=== PATIENT | female | born 1970 | race Hispanic/Latino ===

== ENCOUNTER 2018-11-08 15:43 | Emergency (ER) | payer OTHER ==
--- OUTSIDE RECORDS SUMMARY | 2018-11-08 15:46 | XMS REPORT ---
:1970 [facility] Address [address] [place] [address] Care Team Providers Name Role Phone Unavailable Unavailable Unavailable Payers Payer Name Policy Type Policy Number Effective Date Expiration Date Problems This patient has no known problems. Allergies, Adverse Reactions, Alerts This patient has no known allergies or adverse reactions. Medications This patient has no known medications.
[2018-11-08 17:08] LABS: Urine Glucose NEGATIVE (NEG); Urine Specific Gravity >1.030 (1.005-1.030)
[2018-11-08 17:09] LABS: Urine Blood NEGATIVE (NEG); Urine Protein 1+ (NEG); Urine pH 5.5 (5.0-7.0)
--- NOTE | 2018-11-08 17:29 | RAD REPORT ---
EXAM DESCRIPTION: RAD - Chest Single View - 11/08/2018 4:57 pm CLINICAL HISTORY: DYSPNEA Chest pain. COMPARISON: <Comparisons> FINDINGS: Portable technique limits examination quality. The lungs are grossly clear. The heart is normal in size. No displaced fractures. IMPRESSION: No acute intrathoracic process suspected.
[2018-11-08] MEDS ORDERED: NA CHLORIDE 0.9% 1,000 ML ONE (18:17)
[2018-11-08 18:23] LABS: Basophils % 0.7 % (0-1.3); Hematocrit 35.8 % (36.0-45.0); Lymphocytes % 36.1 % (15.3-44.8); MPV 12.5 fL (7.6-11.3); RBC Red Blood Cell Count 3.87 M/uL (3.86-4.86)
[2018-11-08 18:36] LABS: Potassium 3.4 mmol/L (3.5-5.1)
--- NOTE | 2018-11-08 18:58 | ER ---
Nurse's Notes [facility] Name: Sidni Yang Age: 48 yrs Sex: Female : 1970 Arrival Date: 11/08/2018 Time: 15:45 Bed 27 Private MD: Diagnosis: Dizziness and giddiness Presentation: 11/08 15:53 Presenting complaint: Patient states: I have been feeling a little short of breath and la1 dizzy. I thought I was dehydrated, pt denies N/V/D, reports hx of anemia, had blood work about 3 weeks ago. Transition of care: patient was not received from another setting of care. Onset of symptoms was November 08, 2018. Risk Assessment: Do you want to hurt yourself or someone else? Patient reports no desire to harm self or others. Initial Sepsis Screen: Does the patient meet any 2 criteria? No. Patient's initial sepsis screen is negative. Does the patient have a suspected source of infection? No. Patient's initial sepsis screen is negative. Care prior to arrival: None. 15:53 Method Of Arrival: Ambulatory la1 15:53 Acuity: JOSAFAT 3 la1 Triage Assessment: 19:10 Respiratory: ca1 19:10 Respiratory: Onset: The symptoms/episode began/occurred. 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 - Social history:: Smoking status: Patient/guardian denies using tobacco. - Ebola Screening: : No symptoms or risks identified at this time. Screenin:20 Abuse screen: Denies threats or abuse. Denies injuries from another. Nutritional ca1 screening: No deficits noted. Tuberculosis screening: No symptoms or risk factors identified. Fall Risk IV access (20 points). Assessment: 16:20 General: Appears in no apparent distress. comfortable, Behavior is calm, cooperative, ca1 appropriate for age. Pain: Denies pain. Neuro: Level of Consciousness is awake, alert, obeys commands, Oriented to person, place, time, situation, Reports dizziness, since 3-4 days ago. Cardiovascular: Heart tones S1 S2 present Capillary refill < 3 seconds Patient's skin is warm and dry. Pulses are all present. Rhythm is regular. Respiratory: Reports shortness of breath on exertion since 3-4 days ago Airway is patent Respiratory effort is even, unlabored, Respiratory pattern is regular, symmetrical, Breath sounds are clear bilaterally. GI: Abdomen is flat, non-distended, Bowel sounds present X 4 quads. Abd is soft and non tender X 4 quads. Patient currently denies nausea, vomiting. : No deficits noted. No signs and/or symptoms were reported regarding the genitourinary system. EENT: No deficits noted. No signs and/or symptoms were reported regarding the EENT system. Derm: Skin is intact, is healthy with good turgor, Skin is pink, warm \T\ dry. Musculoskeletal: Circulation, motion, and sensation intact. Capillary refill < 3 seconds, Range of motion: intact in all extremities. 17:00 Reassessment: Patient appears in no apparent distress at this time. Patient and/or ca1 family updated on plan of care and expected duration. Pain level reassessed. Patient is alert, oriented x 3, equal unlabored respirations, skin warm/dry/pink. 18:00 Reassessment: Patient appears in no apparent distress at this time. Patient and/or ca1 family updated on plan of care and expected duration. Pain level reassessed. Patient is alert, oriented x 3, equal unlabored respirations, skin warm/dry/pink. 19:09 Reassessment: Patient appears in no apparent distress at this time. Patient is alert, ca1 oriented x 3, equal unlabored respirations, skin warm/dry/pink. Vital Signs: 15:55 BP 130 / 88; Pulse 91; Resp 16; Temp 97.5; Pulse Ox 98% on R/A; Weight 63.5 kg; Height la1 5 ft. 1 in. (154.94 cm); 17:00 BP 114 / 96; Pulse 72; Resp 16 S; Pulse Ox 100% on R/A; ca1 17:28 BP 130 / 79 Supine; Pulse 77; Resp 16; Pulse Ox 100% ; lt1 17:28 BP 139 / 85 Sitting; Pulse 80; lt1 17:28 BP 127 / 92 Standing; Pulse 88; lt1 18:29 BP 123 / 81; Pulse 71; Resp 18 S; Pulse Ox 100% on R/A; ca1 19:09 BP 134 / 81; Pulse 76; Resp 17 S; Temp 98(O); Pulse Ox 100% ; ca1 15:55 Body Mass Index 26.45 (63.50 kg, 154.94 cm) la1 ED Course: 15:45 Patient arrived in ED. as 15:53 Bella Padilla FNP-C is [facility]. kb 15:53 Jj Hummel MD is Attending Physician. kb 15:54 Triage completed. la1 15:55 Arm band placed on right wrist. la1 16:20 Patient has correct armband on for positive identification. Placed in gown. Bed in low ca1 position. Call light in reach. Side rails up X 1. Pulse ox on. NIBP on. Warm blanket given. 16:39 Vilma Whitten RN is Primary Nurse. ca1 16:50 Initial lab(s) drawn, by me, sent to lab. Missed attempt(s): 22 gauge in right lt1 antecubital area. 16:52 Inserted saline lock: 20 gauge in left antecubital area, using aseptic technique. ca1 16:58 Chest Single View XRAY In Process Unspecified. EDMS 18:12 Lab(s) recollected, by me, sent to lab. ca1 19:10 No provider procedures requiring assistance completed. Patient did not have IV access ca1 during this emergency room visit. Administered Medications: 18:19 Drug: NS 0.9% 1000 ml Route: IV; Rate: 1000 ml; Site: left antecubital; ca1 19:00 Follow up: Response: No adverse reaction; IV Status: Completed infusion; IV Intake: ca1 1000ml Intake: 19:00 IV: 1000ml; Total: 1000ml. ca1 Outcome: 18:55 Discharge ordered by . kb 19:10 Discharged to home ambulatory. ca1 19:10 Condition: stable 19:10 Discharge instructions given to patient, Instructed on discharge instructions, follow up and referral plans. Demonstrated understanding of instructions, follow-up care. 19:11 Patient left the ED. ca1 Signatures: Dispatcher [employer] EDMS Bella Padilla FNP-C FNP-Ckb Martinez, Amelia as Attema, Lee, RN RN la1 Vilma Whitten RN RN ca1 Liz Almazanah lt1 Corrections: (The following items were deleted from the chart) 18:28 16:52 Inserted saline lock: 20 gauge in left antecubital area, using aseptic technique. ca1 Blood collected. ca1
--- NOTE | 2018-11-08 18:58 | EDPHYS ---
Physician Documentation [facility] Name: Sindi Yang Age: 48 yrs Sex: Female : 1970 Arrival Date: 11/08/2018 Time: 15:45 Bed 27 Private MD: ED Physician Jj Hummel HPI: 11/08 16:38 This 48 yrs old Female presents to ER via Ambulatory with complaints of kb Shortness Of Breath. 16:38 The patient has shortness of breath with light activity. Onset: The symptoms/episode kb began/occurred today. Duration: The symptoms are intermittent. The patient's shortness of breath is aggravated by exertion, walking, is alleviated by rest. Associated signs and symptoms: Pertinent positives: dizziness. Severity of symptoms: At their worst the symptoms were moderate in the emergency department the symptoms have resolved. The patient has not experienced similar symptoms in the past. The patient has not recently seen a physician. 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 - Social history:: Smoking status: Patient/guardian denies using tobacco. - Ebola Screening: : No symptoms or risks identified at this time. ROS: 16:38 Constitutional: Negative for fever, chills, and weight loss, Eyes: Negative for injury, kb pain, redness, and discharge, ENT: Negative for injury, pain, and discharge, Neck: Negative for injury, pain, and swelling, Cardiovascular: Negative for chest pain, palpitations, and edema, Abdomen/GI: Negative for abdominal pain, nausea, vomiting, diarrhea, and constipation, Back: Negative for injury and pain, : Negative for injury, bleeding, discharge, and swelling, MS/Extremity: Negative for injury and deformity, Skin: Negative for injury, rash, and discoloration. 16:38 Respiratory: Positive for shortness of breath, on exertion. 16:38 Neuro: Positive for dizziness. Exam: 16:39 Constitutional: This is a well developed, well nourished patient who is awake, alert, kb and in no acute distress. Head/Face: Normocephalic, atraumatic. Eyes: Pupils equal round and reactive to light, extra-ocular motions intact. Lids and lashes normal. Conjunctiva and sclera are non-icteric and not injected. Cornea within normal limits. Periorbital areas with no swelling, redness, or edema. ENT: Nares patent. No nasal discharge, no septal abnormalities noted. Tympanic membranes are normal and external auditory canals are clear. Oropharynx with no redness, swelling, or masses, exudates, or evidence of obstruction, uvula midline. Mucous membranes moist. Neck: Trachea midline, no thyromegaly or masses palpated, and no cervical lymphadenopathy. Supple, full range of motion without nuchal rigidity, or vertebral point tenderness. No Meningismus. Chest/axilla: Normal chest wall appearance and motion. Nontender with no deformity. No lesions are appreciated. Cardiovascular: Regular rate and rhythm with a normal S1 and S2. No gallops, murmurs, or rubs. Normal PMI, no JVD. No pulse deficits. Respiratory: Lungs have equal breath sounds bilaterally, clear to auscultation and percussion. No rales, rhonchi or wheezes noted. No increased work of breathing, no retractions or nasal flaring. Abdomen/GI: Soft, non-tender, with normal bowel sounds. No distension or tympany. No guarding or rebound. No evidence of tenderness throughout. Back: No spinal tenderness. No costovertebral tenderness. Full range of motion. Skin: Warm, dry with normal turgor. Normal color with no rashes, no lesions, and no evidence of cellulitis. MS/ Extremity: Pulses equal, no cyanosis. Neurovascular intact. Full, normal range of motion. Neuro: Awake and alert, GCS 15, oriented to person, place, time, and situation. Cranial nerves II-XII grossly intact. Motor strength 5/5 in all extremities. Sensory grossly intact. Cerebellar exam normal. Normal gait. Vital Signs: 15:55 BP 130 / 88; Pulse 91; Resp 16; Temp 97.5; Pulse Ox 98% on R/A; Weight 63.5 kg; Height la1 5 ft. 1 in. (154.94 cm); 17:00 BP 114 / 96; Pulse 72; Resp 16 S; Pulse Ox 100% on R/A; ca1 17:28 BP 130 / 79 Supine; Pulse 77; Resp 16; Pulse Ox 100% ; lt1 17:28 BP 139 / 85 Sitting; Pulse 80; lt1 17:28 BP 127 / 92 Standing; Pulse 88; lt1 18:29 BP 123 / 81; Pulse 71; Resp 18 S; Pulse Ox 100% on R/A; ca1 19:09 BP 134 / 81; Pulse 76; Resp 17 S; Temp 98(O); Pulse Ox 100% ; ca1 15:55 Body Mass Index 26.45 (63.50 kg, 154.94 cm) la1 MDM: 16:14 Patient medically screened. kb 16:39 Data reviewed: vital signs, nurses notes. Data interpreted: Pulse oximetry: on room air kb is 98 %. Interpretation: normal. 18:55 Counseling: I had a detailed discussion with the patient and/or guardian regarding: the kb historical points, exam findings, and any diagnostic results supporting the discharge/admit diagnosis, lab results, radiology results, the need for outpatient follow up, a family practitioner, to return to the emergency department if symptoms worsen or persist or if there are any questions or concerns that arise at home. 11/08 16:23 Order name: CBC with Diff; Complete Time: 18:28 kb 11/08 16:23 Order name: Basic Metabolic Panel; Complete Time: 18:40 kb 11/08 16:23 Order name: D-Dimer; Complete Time: 18:29 kb 11/08 16:23 Order name: Chest Single View XRAY; Complete Time: 17:42 kb 11/08 16:48 Order name: Urine Dipstick--Ancillary (enter results); Complete Time: 17:10 em1 11/08 16:48 Order name: Urine --Ancillary (enter results); Complete Time: 17:10 em1 11/08 15:54 Order name: Orthostatics; Complete Time: 17:29 kb 11/08 15:54 Order name: Urine Dipstick-Ancillary (obtain specimen); Complete Time: 16:47 kb 11/08 16:23 Order name: IV Start; Complete Time: 16:50 kb 11/08 17:06 Order name: Labs - recollect needed; Complete Time: 18:08 em1 Administered Medications: 18:19 Drug: NS 0.9% 1000 ml Route: IV; Rate: 1000 ml; Site: left antecubital; ca1 19:00 Follow up: Response: No adverse reaction; IV Status: Completed infusion; IV Intake: ca1 1000ml Disposition: 11/09 07:12 Co-signature as Attending Physician, Jj Hummel MD I agree with the assessment and luis plan of care. Disposition: 11/08/18 18:55 Discharged to Home. Impression: Dizziness and giddiness. - Condition is Stable. - Discharge Instructions: Dizziness, [id number]. - Medication Reconciliation Form, Thank You Letter, Antibiotic Education, Prescription Opioid Use form. - Follow up: Emergency Department; When: As needed; Reason: Worsening of condition. Follow up: Private Physician; When: 2 - 3 days; Reason: Recheck today's complaints, Continuance of care, Re-evaluation by your physician. Signatures: Dispatcher [employer] EDBella Estrada, CALENDER LET OFF HELPER-C CALENDER LET OFF HELPER-Jj Ly MD MD cha Martinez, Eric 1 Raheem Dorado RN RN la1 Vilma Whitten RN RN ca1 Corrections: (The following items were deleted from the chart) 11/08 19:11 18:55 11/08/2018 18:55 Discharged to Home. Impression: Dizziness and giddiness. ca1 Condition is Stable. Forms are Medication Reconciliation Form, Thank You Letter, Antibiotic Education, Prescription Opioid Use. Follow up: Emergency Department; When: As needed; Reason: Worsening of condition. Follow up: Private Physician; When: 2 - 3 days; Reason: Recheck today's complaints, Continuance of care, Re-evaluation by your physician. kb
== END 2018-11-08 19:11 | disposition home or self-care (01) ==
LOC: ER 15:43
DX: R42 Dizziness and giddiness (principal)
CPT/HCPCS: 85025; 80048; 36415; 81025; 85379; 81003; 71045; 96360; 99284; J7030